=== PATIENT | female | born 2000 | race African-American/Black ===

== ENCOUNTER 2022-03-29 17:46 | Inpatient (IN) ==
[2022-03-29] MEDS ORDERED: miSOPROStoL 200 MCG TABLET RECTAL PRN (19:29)
[2022-03-29] MEDS ORDERED: LACTATED RINGERS 250 ML IV ONE (19:29)
[2022-03-29] MEDS ORDERED: OXYTOCIN/LR 20 UNIT/1,000 ML BAG IV ONE (19:29)
[2022-03-29] MEDS ORDERED: TRANEXAMIC ACID 1,000 MG in SODIUM CHLORIDE 0.9% 100 ML IV PRN (19:29)
[2022-03-29] MEDS ORDERED: CARBOPROST TROMETHAMINE 250 MCG/ML AMP IM PRN (19:29)
[2022-03-29] MEDS ORDERED: ONDANSETRON 4 MG/2 ML VIAL IV PRN (19:29)
[2022-03-29] MEDS ORDERED: METHYLERGONOVINE 0.2 MG/1 ML AMP IM PRN (19:29)
[2022-03-29] MEDS ORDERED: LACTATED RINGERS 500 ML IV PRN (19:29)
[2022-03-29] MEDS ORDERED: MEPERIDINE 50 MG/1 ML VIAL IV PRN (19:29)
[2022-03-29] MEDS ORDERED: LACTATED RINGERS 1,000 ML IV SCH (19:30)
[2022-03-29] MEDS ORDERED: diphenhydrAMINE 50 MG/1 ML VIAL IV PRN (19:31)
[2022-03-29] MEDS ORDERED: CITRIC ACID/SODIUM CITRATE 30 ML UDCUP PO ONE (19:31)
[2022-03-29] MEDS ORDERED: ePHEDrine 50 MG/ML VIAL IV PRN (19:31)
[2022-03-29] MEDS ORDERED: FAMOTIDINE 20 MG/2 ML VIAL IV ONE (19:31)
[2022-03-29] MEDS ORDERED: PROMETHAZINE 25 MG/1 ML VIAL IM PRN (19:31)
[2022-03-29] MEDS ORDERED: hydrOXYzine HCL 25 MG/1 ML VIAL IM PRN (19:31)
[2022-03-29] MEDS ORDERED: NALOXONE 0.4 MG/ML VIAL IV PRN (19:31)
[2022-03-29 20:01] LABS: Basophils % 0.1 % (0.0-0.8); Eosinophils % 0.6 % (0.00-10.9); Hematocrit 28.7 VOL% (35.7-47.0); Hemoglobin 9.8 GM/DL (12.0-16.0); Immature Granulocytes Absolute 0.07 #; Lymphocytes # 1.1 10*3/uL (1.4-4.0); Lymphocytes % 15.8 % (21.3-54.2); Mean Corpuscular HGB Conc 34.1 GM/DL (32-36); Mean Corpuscular Volume 82.9 FL (87-102); Mean Platelet Volume 10.7 FL (9.6-12.0); Monocytes # 0.6 10*3/uL (0.11-0.8); Monocytes % 8.9 % (1.7-12.7); NRBC # 0.02 10*3/uL; Neutrophils % 73.6 % (38.7-73.9); Platelet Count 213 T/CUMM (130-400); Red Blood Count 3.46 MC/CUMM (3.8-5.5); Red Cell Distribution Width 13.7 % (9.3-17.3); White Blood Count 6.7 T/CUMM (4-12)
[2022-03-29 20:22] LABS: Bilirubin,Total 0.9 MG/DL (0.20-1.00); Calcium 8.4 MG/DL (8.5-10.1); Osmolality,Calculated 276.3 MOS/KG (273-304); Potassium 3.4 MMOL/L (3.5-5.1); Total Protein 6.3 G/DL (6.4-8.2)
[2022-03-29] MEDS: fentaNYL 2 MCG/ROPIV 0.2% EPID 100 ML EPIDURAL SCH (20:41)
[2022-03-29 23:24] LABS: Bilirubin,Urine Negative (Negative); Blood, Urine Negative (Negative); Glucose,Urine (UA) Negative (Negative); Ketones,Urine 15 mg/dL (Negative); Nitrite,Urine Negative (Negative); Protein,Urine Negative (Negative); Urine Appearance Clear (Clear); Urine Color Yellow (Yellow); Urine pH 6.5 (4.5-8.0)
[2022-03-29 23:27] LABS: Mucus,Urine Few /LPF (Occasional); Squamous Epithelial Cell,Urine Occasional /HPF (0-10)
[2022-03-30] MEDS: fentaNYL 2 MCG/ROPIV 0.2% EPID 100 ML EPIDURAL SCH ×2 (03:17→12:44)
[2022-03-30] MEDS ORDERED: OXYTOCIN/LR 20 UNIT/1,000 ML BAG IV SCH (04:00)
[2022-03-30] MEDS ORDERED: METHYLERGONOVINE 0.2 MG/1 ML AMP ONE (09:50)
[2022-03-30] MEDS ORDERED: miSOPROStoL 200 MCG TABLET ONE (09:50)
[2022-03-30] MEDS ORDERED: CARBOPROST TROMETHAMINE 250 MCG/ML AMP IM ONE (09:50)
[2022-03-30] MEDS ORDERED: TRANEXAMIC ACID 1,000 MG/10 ML VIAL ONE (09:50)
[2022-03-30] MEDS ORDERED: SODIUM CHLORIDE 0.9% 0 ML IV ONE (09:50)
[2022-03-30 11:04] LABS: Cord Venous Blood PCO2 36.6 MMHG; Cord Venous Blood PO2 36.6
[2022-03-30] MEDS ORDERED: MEASLES/MUMPS/RUBELLA VACCINE 0.5 ML VIAL SUBCUT ONE (15:30)
[2022-03-30] MEDS ORDERED: oxyCODONE/ACETAMINOPHEN 5-325 MG TABLET PO PRN ×2 (15:30)
[2022-03-30] MEDS ORDERED: IBUPROFEN 800 MG TABLET PO PRN (15:30)
[2022-03-30] MEDS ORDERED: BENZOCAINE 20%/MENTHOL 0.5% SPRAY 56 GM CAN TOP PRN (15:30)
[2022-03-30] MEDS ORDERED: WITCH HAZEL PADS 100/JAR TOP PRN (15:30)
[2022-03-30] MEDS ORDERED: HYDROCORTISONE 2.5% RECTAL CREAM 30 GM TUBE TOP PRN (15:30)
[2022-03-30] MEDS ORDERED: RHO(D) IMMUNE GLOBULIN 300 MCG SYRINGE IM ONE (15:30)
[2022-03-30] MEDS ORDERED: DIPH/TET/ACEL PERT BOOSTER VACCINE 0.5 ML VIAL IM ONE (15:30)
[2022-03-30] MEDS ORDERED: LANOLIN 50% CREAM 0.3 OZ TUBE TOP PRN (15:30)
[2022-03-30] MEDS ORDERED: OXYTOCIN/LR 20 UNIT/1,000 ML BAG IV ONE (15:30)
[2022-03-30] MEDS ORDERED: BISACODYL 10 MG SUPP RECTAL PRN (15:30)
[2022-03-30] MEDS ORDERED: ACETAMINOPHEN 325 MG TABLET PO PRN (15:30)
[2022-03-30] MEDS: DOCUSATE SODIUM 100 MG CAPSULE PO SCH (20:17)
[2022-03-31 06:35] LABS: Basophils % 0.4 % (0.0-0.8); Eosinophils # 0.2 10*3/uL (0.0-0.87); Eosinophils % 1.9 % (0.00-10.9); Hematocrit 26.1 VOL% (35.7-47.0); Hemoglobin 8.5 GM/DL (12.0-16.0); Immature Granulocytes % 0.5 %; Immature Granulocytes Absolute 0.04 #; Lymphocytes # 1.7 10*3/uL (1.4-4.0); Lymphocytes % 21.8 % (21.3-54.2); Mean Corpuscular HGB Conc 32.6 GM/DL (32-36); Mean Corpuscular Volume 85.3 FL (87-102); Mean Platelet Volume 10.8 FL (9.6-12.0); Monocytes # 0.8 10*3/uL (0.11-0.8); Monocytes % 10.4 % (1.7-12.7); Platelet Count 207 T/CUMM (130-400); Red Blood Count 3.06 MC/CUMM (3.8-5.5); Red Cell Distribution Width 13.9 % (9.3-17.3); White Blood Count 7.9 T/CUMM (4-12)
[2022-03-31] MEDS: DOCUSATE SODIUM 100 MG CAPSULE PO SCH ×2 (08:24→21:00)
[2022-03-31] MEDS: FERROUS SULFATE 325 MG TABLET PO SCH ×2 (08:24→21:00)
[2022-03-31] MEDS ORDERED: FERROUS SULFATE 325 MG TABLET PO SCH (09:00)
[2022-04-01] MEDS ORDERED: SIMETHICONE CHEW 80 MG TABLET PO PRN (02:12)
[2022-04-01] MEDS ORDERED: INFLUENZA VIRUS VACCINE 0.5 ML SYRINGE IM ONE (07:19)
[2022-04-01 07:31] VITALS: BP 137/79
[2022-04-01] MEDS: FERROUS SULFATE 325 MG TABLET PO SCH (08:27)
[2022-04-01] MEDS: DOCUSATE SODIUM 100 MG CAPSULE PO SCH (08:27)
== END 2022-04-01 12:35 | disposition home or self-care (01) | DRG 560 ==
LOC: N.LDOUT 17:46 → N.LD 19:29 → N.OB 03-30 15:25
PROVIDERS: ADMIT Obstetrics & Gynecology; ATTEND Obstetrics & Gynecology